=== PATIENT | female | born 1980 | race Caucasian/White ===

== ENCOUNTER 2016-09-27 15:12 | Emergency (ER) | payer BC ==
[2016-09-27 19:43] LABS: HEMOGLOBIN 15.5 gm/dl (12.3-15.3); RED BLOOD COUNT 4.85 M/UL (4.00-5.10); WHITE BLOOD COUNT 6.8 K/UL (4.5-11.0)
[2016-09-27 20:02] LABS: BUN/CREATININE RATIO 10 (0-10)
== END 2016-09-27 20:27 | disposition home or self-care (01) ==
LOC: ER1 15:12
PROVIDERS: Family Medicine
DX: S20.219A Contusion of unspecified front wall of thorax, initial encounter (principal); R10.9 Unspecified abdominal pain; I10 Essential (primary) hypertension; Z79.899 Other long term (current) drug therapy; V43.62XA Car passenger injured in collision with other type car in traffic accident, initial encounter
CPT/HCPCS: 36415; 71260; 80053; 81001; 83690; 85025; 93005; 99284; J7050; Q9962

== ENCOUNTER → 2020-05-31 | Outpatient (CLI) | payer BC | LOC: EXRD 04-26 10:30 | DX: R74.8 Abnormal levels of other serum enzymes (principal); K76.0 Fatty (change of) liver, not elsewhere classified | CPT/HCPCS: 76705 ==